=== PATIENT | female | born 1950 | race Caucasian/White ===

== ENCOUNTER 2018-02-22 07:50 | Day surgery (SDC) | payer MEDICARE, OTHER ==
[~2018-02-22 07:50] MED LIST: ACETAMINOPHEN 325 MG TAB PO; PHENYLEPHRINE HCL 10 % OPHTH. SOL 5ML OD
[2018-02-22] MEDS: TROPICAMIDE 1% OPHTH SOLN 2ML OD (10:04)
[2018-02-22] MEDS: PHENYLEPHRINE 2.5% OPHTH SOL 2ML OD (10:04)
[2018-02-22] MEDS: OFLOXACIN 0.3 % (OCUFLOX) OPTH SOL 5ML OD (10:04)
[2018-02-22] MEDS: LIDOCAINE 3.5 % 1ML OPHTH TOPICAL GEL OU (10:04)
[2018-02-22] MEDS: CYCLOPENTOLATE 2% OPHTH SOLN 2ML BTL OD (10:04)
[2018-02-22] MEDS ORDERED: MIDAZOLAM INJ 2 MG/2 ML VIAL (J2250) As Ordered (10:44)
[2018-02-22] MEDS ORDERED: fentaNYL 100 MCG/2 ML INJECTION (J3010) As Ordered (10:44)
[2018-02-22] MEDS: MOXIFLOXACIN IN BSS 0.25MG/0.25ML INTRACAMERAL INJ (OR EYE ONLY)(J2280) As Ordered (11:12)
[2018-02-22] MEDS: POVIDONE-IODINE 5% OPHTH PREP SOL 30ML As Ordered (11:12)
[2018-02-22] MEDS: LIDOCAINE 1% SDV 5 ML VIAL As Ordered (11:12)
[2018-02-22] MEDS: HEALON DUET (HEALON 10MG/ML 0.55ML & HEALON ENDOCOAT 30MG/ML 0.85ML) As Ordered (11:12)
[2018-02-22] MEDS: BSS with VANC/TOB/EPI for EYE CASES IR (11:13)
[2018-02-22] MEDS: TRIAMCINOLONE PRES FR 40 MG/ML 1ML(TRIESENCE)(OR EYE ONLY)(J3300 PER 1MG) As Ordered (11:13)
[2018-02-22] MEDS: LIDOCAINE 2% W/EPIN INJ 20ML **PRES FREE XX (11:14)
[2018-02-22] MEDS ORDERED: AcetaZOLAMIDE 500 MG ER CAP PO (12:00)
[2018-02-22] MEDS ORDERED: TRIMETHOBENZAMIDE 300 MG CAP PO (12:00)
== END 2018-02-22 12:15 | disposition home or self-care (01) ==
LOC: M SDC 07:50
DX: H26.9 Unspecified cataract (principal); I10 Essential (primary) hypertension; L71.9 Rosacea, unspecified; Z79.899 Other long term (current) drug therapy; Z85.3 Personal history of malignant neoplasm of breast; Z90.710 Acquired absence of both cervix and uterus; Z92.3 Personal history of irradiation; Z92.21 Personal history of antineoplastic chemotherapy
CPT/HCPCS: 66984

== ENCOUNTER 2018-03-01 09:53 | Day surgery (SDC) | payer MEDICARE, OTHER ==
[2018-03-01] MEDS: LIDOCAINE 1% SDV 5 ML VIAL As Ordered (07:05)
[~2018-03-01 09:53] MED LIST changes: +MIDAZOLAM INJ 2 MG/2 ML VIAL (J2250) As Ordered; -PHENYLEPHRINE HCL 10 % OPHTH. SOL 5ML OD; +PHENYLEPHRINE HCL 10 % OPHTH. SOL 5ML OS; +fentaNYL 100 MCG/2 ML INJECTION (J3010) As Ordered
[2018-03-01] MEDS: CYCLOPENTOLATE 2% OPHTH SOLN 2ML BTL OS (10:50)
[2018-03-01] MEDS: TROPICAMIDE 1% OPHTH SOLN 2ML OS (10:51)
[2018-03-01] MEDS: OFLOXACIN 0.3 % (OCUFLOX) OPTH SOL 5ML OS (10:51)
[2018-03-01] MEDS: LIDOCAINE 3.5 % 1ML OPHTH TOPICAL GEL OU (10:51)
[2018-03-01] MEDS: PHENYLEPHRINE 2.5% OPHTH SOL 2ML OS (10:51)
[2018-03-01] MEDS: TRIAMCINOLONE PRES FR 40 MG/ML 1ML(TRIESENCE)(OR EYE ONLY)(J3300 PER 1MG) As Ordered (13:47)
[2018-03-01] MEDS: HEALON DUET PRO(HEALON 10MG/ML 0.55ML & HEALON ENDOCOAT 30MG/ML 0.85ML) As Ordered (13:47)
[2018-03-01] MEDS: POVIDONE-IODINE 5% OPHTH PREP SOL 30ML As Ordered (13:47)
[2018-03-01] MEDS: MOXIFLOXACIN IN BSS 0.25MG/0.25ML INTRACAMERAL INJ (OR EYE ONLY)(J2280) As Ordered (13:47)
[2018-03-01] MEDS: BSS with VANC/TOB/EPI for EYE CASES IR (13:47)
[2018-03-01] MEDS ORDERED: TRIMETHOBENZAMIDE 300 MG CAP PO (14:30)
[2018-03-01] MEDS: AcetaZOLAMIDE 500 MG ER CAP PO (14:35)
== END 2018-03-01 14:50 | disposition home or self-care (01) ==
LOC: M SDC 09:53
DX: H25.9 Unspecified age-related cataract (principal); I10 Essential (primary) hypertension; Z79.899 Other long term (current) drug therapy; Z92.3 Personal history of irradiation; Z92.21 Personal history of antineoplastic chemotherapy; Z85.3 Personal history of malignant neoplasm of breast
CPT/HCPCS: 66984

== ENCOUNTER 2018-09-12 06:46 | Day surgery (SDC) | payer MEDICARE, OTHER ==
[~2018-09-12] VITALS: Ht 167.6 cm; Wt 97.1 kg
[~2018-09-12 06:46] MED LIST changes: -ACETAMINOPHEN 325 MG TAB PO; +AZEL1SPR3; +BENA25CA4 PO; +BEPR1.5D2 OU; +CALC600T60 PO; +CYCL5TAB PO; +EYECAP PO; +FISH120016 PO; +GNPTAB35 PO; +HYDR25TAB PO; +IRBE300T12 PO; +LIDOCAINE 2% W/EPIN INJ 20ML **PRES FREE As Ordered ONE; +METO1TAB87 PO; -MIDAZOLAM INJ 2 MG/2 ML VIAL (J2250) As Ordered; +MULTCAP PO; +NORV5TAB PO; +PATA2.5S OU; -PHENYLEPHRINE HCL 10 % OPHTH. SOL 5ML OS; +POTA1TAB14 PO; +POVIDONE-IODINE 5% OPHTH PREP SOL 30ML As Ordered ONE; +PRAV10TA3 PO; +REST0.05 OU; +STOO100C PO; +TOBRADEX OPHTH OINT 3.5 GM As Ordered ONE; +VITA200015 PO; +VITA500T PO; +ZYRT10CA5 PO; -fentaNYL 100 MCG/2 ML INJECTION (J3010) As Ordered
[2018-09-12] MEDS ORDERED: LIDOCAINE 3.5 % 1ML OPHTH TOPICAL GEL OU ONE (07:00)
[2018-09-12] MEDS ORDERED: MIDAZOLAM INJ 2 MG/2 ML VIAL (J2250) As Ordered ONE ×2 (07:17→10:36)
[2018-09-12] MEDS ORDERED: fentaNYL 100 MCG/2 ML INJECTION (J3010) As Ordered ONE (10:36)
[2018-09-12 11:20] VITALS: BP 126/59
--- NOTE | 2018-09-12 14:29 | RO ---
DATE OF SURGERY: 09/12/2018 PREOPERATIVE DIAGNOSIS: Conjunctival mass right eye. POSTOPERATIVE DIAGNOSIS: Conjunctival mass right eye. PROCEDURE: Excision of the conjunctival mass. SURGEON: Ashley Gale MD [employer]W LEADER: None. COMPLICATIONS: None. PROCEDURE IN DETAIL: The patient was brought to the operating room and laid in supine position. The eye was prepped and draped in a sterile fashion for ophthalmic surgery and a lid speculum was placed. 2% lidocaine with 1:100,000 epinephrine about 1 mL was placed in the subconjunctival space underneath the lateral conjunctiva. This fleshy conjunctival mass was then excised in total and sent for pathology. The conjunctiva was closed with the help of the cautery, which was used as necessary. At the end of the case, TobraDex ointment was applied. The eye was patched and patient was returned to the recovery room with post-op instructions.
== END 2018-09-12 11:32 | disposition home or self-care (01) ==
LOC: M SDC 06:46
PROVIDERS: ATTEND Ophthalmology
DX: H11.001 Unspecified pterygium of right eye (principal); I10 Essential (primary) hypertension; I35.1 Nonrheumatic aortic (valve) insufficiency; Z85.3 Personal history of malignant neoplasm of breast; Z92.3 Personal history of irradiation; Z92.21 Personal history of antineoplastic chemotherapy; Z79.899 Other long term (current) drug therapy
CPT/HCPCS: 65420; 88304; J2250; J3010

== ENCOUNTER → 2019-09-05 | Outpatient (REF) | payer MEDICARE, OTHER ==
[~2019-09-05] MED LIST changes: -LIDOCAINE 2% W/EPIN INJ 20ML **PRES FREE As Ordered ONE; +MM S100C PO; -POVIDONE-IODINE 5% OPHTH PREP SOL 30ML As Ordered ONE; -STOO100C PO; -TOBRADEX OPHTH OINT 3.5 GM As Ordered ONE; +VITA-243 PO; -VITA500T PO
== END ==
LOC: M LAB REF 14:46
PROVIDERS: ATTEND Ophthalmology
DX: C69 Malignant neoplasm of eye and adnexa (principal)